=== PATIENT | female | born 1960 | race Two or more races ===

== ENCOUNTER 2017-06-19 19:45 | Emergency (ER) | payer OTHER, SELFPAY ==
[~2017-06-19] VITALS: Ht 165.1 cm; Wt 92.0 kg
[2017-06-19] MEDS ORDERED: MORPHINE SULFATE 4 MG/ML, 1ML ONE (20:19)
[2017-06-19] MEDS ORDERED: ONDANSETRON 2MG/ML, 2ML ONE (20:19)
[2017-06-19] MEDS ORDERED: ONDANSETRON 2MG/ML, 2ML IVPush ONE (20:30)
[2017-06-19] MEDS ORDERED: SODIUM CHLORIDE FLUSH 10ML SYR IVF ONE (20:30)
[2017-06-19] MEDS ORDERED: MORPHINE SULFATE 4 MG/ML, 1ML IVPush PRN (20:30)
[2017-06-19 20:36] VITALS: BP 113/65
== END 2017-06-19 21:55 | disposition home or self-care (01) ==
LOC: ED 21:48
DX: S63.521A Sprain of radiocarpal joint of right wrist, initial encounter (principal); W18.30XA Fall on same level, unspecified, initial encounter; Y93.89 Activity, other specified; Y99.8 Other external cause status; Y92.59 Other trade areas as the place of occurrence of the external cause
CPT/HCPCS: 29125; 73030; 73080; 73110; 73130; 96374; 96375; 99284; J2405

== ENCOUNTER 2019-05-20 01:05 | Emergency (ER) | payer OTHER ==
[~2019-05-20] VITALS: Ht 157.5 cm; Wt 110.0 kg
[2019-05-20 01:07] VITALS: BP 149/96
[2019-05-20] MEDS ORDERED: HYDROcodone/APAP 5/325 TABLET PO PRN (01:30)
[2019-05-20] MEDS ORDERED: IBUPROFEN 600 MG TABLET PO ONE (01:30)
[2019-05-20] MEDS ORDERED: IBUPROFEN 600 MG TABLET ONE (01:42)
[2019-05-20] MEDS ORDERED: HYDROcodone/APAP 5/325 TABLET ONE (01:42)
== END 2019-05-20 02:17 | disposition home or self-care (01) ==
LOC: ED 01:54
DX: M72.2 Plantar fascial fibromatosis (principal); M79.672 Pain in left foot; M77.32 Calcaneal spur, left foot; M21.42 Flat foot [pes planus] (acquired), left foot
CPT/HCPCS: 99283

== ENCOUNTER 2021-07-25 14:56 | Outpatient (CLI) | payer OTHER | END 2021-07-25 23:59 | disposition home or self-care (01) | LOC: CFH 14:56 | PROVIDERS: ATTEND Internal Medicine Cardiovascular Disease | DX: I35.8 Other nonrheumatic aortic valve disorders (principal) | CPT/HCPCS: 93306 ==